=== PATIENT | female | born 1945 | race Caucasian/White ===

== ENCOUNTER 2018-07-05 13:23 | Observation (INO) | payer OTHER ==
--- NOTE | 2018-07-05 13:56 | PDOC ---
Attending Attestation - HPI HPI: 07/05/18 14:41 CC: AMS HPI: The patient is a 72 year old female, with a significant past medical history of schizophrenia, mood disorder, osteoporosis, hypothyroidism, CHF, h/o DVT, who presents to the emergency department with, altered mental status. As per alf, she has been altered, they attempted to begin a work-up on her but , were unsuccessful. History is limited due to patients clinical condition. Primary Care Physician: Dr. Srivastava <Kal Little - Last Filed: 07/05/18 14:41> - Resident Resident Name: Leona Daniels - ED Attending Attestation I have performed the following: I have examined & evaluated the patient, The case was reviewed & discussed with the resident, I agree w/resident's findings & plan, Exceptions are as noted - Physicial Exam PE: 07/05/18 18:07 reviewed residents PE - Medical Decision Making 07/05/18 18:08 72 years old history schizophrenia on Risperdal and Depakote presents to the ED with altered mental status per facility Patient given Haldol upon arrival for anxiolysis CT within normal limits laboratory analysis notable for possible UTI and slight Depakote toxicity We'll treat with IV fluids ceftriaxone hold Depakote and observe patient overnight. [facility] aware of findings. <Jin Simmons - Last Filed: 07/05/18 18:09> Heart Score/ECG Review - ECG Impressions Comment:: 07/05/18 18:09 EKG performed at 1350. Demonstrates normal sinus rhythm. T-wave inversions septally No ST elevations. Interpreted by me. <Jin Simmons - Last Filed: 07/05/18 18:09> Attestations - Attestations 07/05/18 14:41 Documentation prepared by Kal Little, acting as medical physicist for Jin Simmons MD. <Kal Little - Last Filed: 07/05/18 14:41>
--- NOTE | 2018-07-05 14:10 | PDOC ---
History of Present Illness - General Stated Complaint: SEPSIS Time Seen by Provider: 07/05/18 13:34 - History of Present Illness Initial Comments: Yelena Bobo is a 72yo woman with schizophrenia, mood disorder, osteoporosis , hypothyroidism, CHF, h/o DVT who presents from [facility] with altered mental status. Ms Bobo is unable to provide any additional information as she does not answer questions. Past History - Past Medical History Allergies/Adverse Reactions: Allergies Allergy/AdvReac Type Severity Reaction Status Date / Time No Known Allergies Allergy Verified 07/05/18 16:17 Home Medications: Ambulatory Orders Alendronate Sodium [Binosto] 70 mg PO WEEKLY 07/05/18 Divalproex Sprinkle [Depakote Sprinkle -] 1,250 mg PO DAILY 07/05/18 Risperidone 0.5 mg PO BID 07/05/18 Review of Systems - Review of Systems Comments:: Could not obtain. AMS, does not answer questions. *Physical Exam - Physical Exam Comments: General: No acute distress HEENT: PERRL, EOMI, MMM, normal neck ROM, no obvious injury Cards: RRR Pulm: Comfortable on room air, no wheezing or crackles appreciated Abd: Soft, nontender, nondistended Ext: Atraumatic. No LE edema. ROM intact. Moves all extremities Vasc: Extremities WWP. Skin: Normal color, no rashes or lesions Neuro: A&Ox3, CN grossly intact, motor/sensory grossly intact and symmetric Psych: Agitated ED Treatment Course - LABORATORY CBC & Chemistry Diagram: 07/05/18 14:20 07/05/18 14:20 Medical Decision Making - Medical Decision Making 07/05/18 14:26 Yelena Bobo is a 72yo woman with a significant psychiatric history, prior DVT, CHF who presents from [facility] with AMS. - Normal HR, RR, temp - does not meet sepsis criteria - Urine malodorous. UA, UCx sent - CXR, EKG to r/o acute abnormalities - No obvious head trauma, but unknown whether Ms Bobo had a fall. CT head to r/o bleed or abnormalities - On depakote; will check level - CBC, CMP, mag, phos for abnormalities that could be causing AMS - Blood cultures to r/o bacteremia 07/05/18 16:15 - Labs reviewed. No concerning abnormalities on CBC or CMP. - UA with +leuk esterase, +nitrites, 8WBC, rare bacteria. Likely UTI, may be the cause of AMS. Giving 1g ceftriaxone - Depakote level supratherapeutic at 182. - Blood and urine cultures pending - CXR and EKG w/o concerning abnormalities - CT head to be completed - Informed Myra Correa at [facility] (medical staff). She reports most recent level was obtained in January; unknown how long the level was high. - Spoke to Dr Izaguirre regarding admission. Will accept to obs. Seen and discussed with Dr Simmons. Amanda Engel PGY1 *DC/Admit/Observation/Transfer Diagnosis at time of Disposition: Altered mental status Qualifiers: Altered mental status type: unspecified Qualified Code(s): R41.82 - Altered mental status, unspecified UTI (urinary tract infection) Qualifiers: Urinary tract infection type: site unspecified Hematuria presence: without hematuria Qualified Code(s): N39.0 - Urinary tract infection, site not specified - Discharge Dispostion Condition at time of disposition: Stable Decision to Admit order: Yes - Referrals Referrals: Jamari Srivastava [Primary Care Provider] - - Patient Instructions - Post Discharge Activity
[2018-07-05] MEDS ORDERED: HALOPERIDOL LACTATE 5 MG/ML IM ONE (14:17)
[2018-07-05 14:31] LABS: BASO % 0.6 % (0-2.0); EOS % 1.5 % (0-4.5); HEMATOCRIT 33.8 % (32.4-45.2); HEMOGLOBIN 11.7 GM/dL (10.7-15.3); LYMPH % 36.9 % (8-40); MCH 29.5 pg (25.7-33.7); MCHC 34.7 g/dl (32.0-36.0); MEAN CELL VOLUME 84.9 fl (80-96); MEAN PLT VOLUME 8.3 fl (7.5-11.1); MONO % 6.3 % (3.8-10.2); NEUT % 54.7 % (42.8-82.8); PLATELET COUNT 242 K/MM3 (134-434); RBC 3.98 M/mm3 (3.60-5.2); RDW 15.4 % (11.6-15.6); WHITE BLOOD COUNT 5.9 K/mm3 (4.0-10.0)
[2018-07-05 14:42] LABS: URINE APPEARANCE CLEAR; URINE BILIRUBIN NEGATIVE (<2.0 mg/dL); URINE COLOR LTYELLOW; URINE GLUCOSE (UA) NEGATIVE (NEGATIVE); URINE KETONE NEGATIVE (NEGATIVE); URINE LEUK ESTERASE 1+ (NEGATIVE); URINE NITRITE POSITIVE (NEGATIVE); URINE PROTEIN NEGATIVE (NEGATIVE); URINE UROBILINOGEN NEGATIVE mg/dL (0.2-1.0)
[2018-07-05 14:51] LABS: EPI CELLS RARE /HPF (FEW); URINE BACTERIA RARE /hpf (NONE SEEN)
[2018-07-05 15:55] LABS: ALBUMIN 3.4 g/dl (3.4-5.0); ALK PHOS 70 U/L (45-117); ANION GAP 8 MMOL/L (8-16); BILIRUBIN,TOTAL 0.3 mg/dL (0.2-1); BLOOD UREA NITROGEN 12 mg/dL (7-18); CALCIUM 9.3 mg/dL (8.5-10.1); CHLORIDE 104 mmol/L (98-107); CO2 28 mmol/L (21-32); CREATININE 0.7 mg/dL (0.55-1.3); GLUCOSE,RANDOM 83 mg/dL (74-106); MAGNESIUM 2.2 mg/dL (1.8-2.4); PHOSPHOROUS 3.4 mg/dL (2.5-4.9); POTASSIUM 4.7 mmol/L (3.5-5.1); SGOT/AST 17 U/L (15-37); SGPT/ALT 12 U/L (13-61); SODIUM 140 mmol/L (136-145); TOT PROT 6.9 g/dl (6.4-8.2)
[2018-07-05] MEDS ORDERED: CEFTRIAXONE 1 GM in DEXTROSE 5%-WATER - 50 ML IVPB ONE (16:14)
[2018-07-05] MEDS ORDERED: CEFTRIAXONE 1 GM/50 ML BAG ONE (18:16)
[2018-07-05] MEDS ORDERED: ACETAMINOPHEN 500 MG TABLET (FP) PO PRN (21:43)
[2018-07-06 01:52] VITALS: BMI 32.8
[2018-07-06] MEDS ORDERED: DEXTROSE 5%-WATER - 50 ML IVPB ONE (06:24)
[2018-07-06] MEDS ORDERED: cefTRIAXone SODIUM 1 GM VIAL ONE (06:24)
[2018-07-06] MEDS: LEVOTHYROXINE NA 88 MCG TABLET (FP) PO SCH ×3 (06:40→07:49)
[2018-07-06] MEDS: CEFTRIAXONE 1 GM in DEXTROSE 5%-WATER - 50 ML IVPB SCH ×3 (06:40→07:49)
--- NOTE | 2018-07-06 10:43 | HP ---
Admitting History and Physical - Primary Care Physician PCP: Zion Srivastava - Admission Chief Complaint: AMS History of Present Illness: ER History -- The patient is a 72 year old female, with a significant past medical history of schizophrenia, mood disorder, osteoporosis, hypothyroidism, CHF, h/o DVT, who presents to the emergency department with, altered mental status. As per retirement, she has been altered, they attempted to begin a work-up on her but , were unsuccessful. History is limited due to patients clinical condition. Pt seen by me in the floors Sleepy but arousable As per RN- last night she was very agitated Baseline- confused, agitated at times. No distress ate her breakfast this AM History Source: Patient, Transfer Record Limitations to Obtaining History: Poor Historian - Past Medical History ...: No Psych: Yes: Bipolar, Depression, Schizophrenia Endocrine: Yes: Hypothyroidism - Smoking History Smoking history: Unknown if ever smoked Home Medications - Allergies Allergies/Adverse Reactions: Allergies Allergy/AdvReac Type Severity Reaction Status Date / Time No Known Allergies Allergy Verified 07/05/18 16:17 - Home Medications Home Medications: Ambulatory Orders Acetaminophen [Tylenol -] 500 mg PO Q6H 07/05/18 Alendronate Sodium [Binosto] 70 mg PO WEEKLY 07/05/18 Divalproex Sprinkle [Depakote Sprinkle -] 1,000 mg PO HS 07/05/18 Divalproex Sprinkle [Depakote Sprinkle -] 1,250 mg PO DAILY 07/05/18 Ergocalciferol (Vitamin D2) [Drisdol] 50,000 unit PO WEEKLY 07/05/18 Folic Acid - 1 mg PO DAILY 07/05/18 Ketoconazole 2% Cream [Nizoral 2% Cream -] 1 applic TP DAILY 07/05/18 Levothyroxine Sodium [Synthroid] 88 mcg PO AM 07/05/18 Olanzapine Zydis [Zyprexa Zydis -] 20 mg PO HS 07/05/18 Risperidone 0.5 mg PO BID 07/05/18 Review of Systems - Review of Systems Constitutional: denies: Chills, Fever Physical Examination Vital Signs: Vital Signs Temperature 98.2 F 07/06/18 07:05 Pulse Rate 88 07/06/18 07:05 Respiratory Rate 18 12/05/18 07:05 Blood Pressure 132/76 12/05/18 07:05 O2 Sat by Pulse Oximetry (%) 98 07/05/18 21:00 Constitutional: Yes: No Distress, Calm Cardiovascular: Yes: Regular Rate and Rhythm Respiratory: Yes: Diminished Gastrointestinal: Yes: Normal Bowel Sounds, Soft. No: Tenderness Edema: No Labs: CBC, BMP 07/05/18 14:20 07/05/18 14:20 Imaging - Results Chest X-ray: Image Reviewed (no infiltrate) Cat Scan: Report Reviewed EKG: Image Reviewed (NSR) Problem List - Problems (1) Schizophrenia Code(s): F20.9 - SCHIZOPHRENIA, UNSPECIFIED (2) Bipolar 1 disorder Code(s): F31.9 - BIPOLAR DISORDER, UNSPECIFIED (3) Altered mental status Code(s): R41.82 - ALTERED MENTAL STATUS, UNSPECIFIED Qualifiers: Altered mental status type: unspecified Qualified Code(s): R41.82 - Altered mental status, unspecified (4) UTI (urinary tract infection) Code(s): N39.0 - URINARY TRACT INFECTION, SITE NOT SPECIFIED Qualifiers: Urinary tract infection type: site unspecified Hematuria presence: without hematuria Qualified Code(s): N39.0 - Urinary tract infection, site not specified Assessment/Plan PLAN IV antibiotics hold Valproate - repeat levels check urine cultures and blood cultures DVT prophylaxis-- heparin sc
--- NOTE | 2018-07-06 13:03 | EKG ---
Test Reason : Blood Pressure : / mmHG Vent. Rate : 068 BPM Atrial Rate : 068 BPM P-R Int : 160 ms QRS Dur : 088 ms QT Int : 384 ms P-R-T Axes : 051 027 005 degrees QTc Int : 408 ms NORMAL SINUS RHYTHM POSSIBLE LEFT ATRIAL ENLARGEMENT SEPTAL INFARCT , AGE UNDETERMINED T WAVE ABNORMALITY, CONSIDER ANTERIOR ISCHEMIA ABNORMAL ECG NO PREVIOUS ECGS AVAILABLE Confirmed by MARIANO EDGAR MD ([id number]) on 07/06/2018 1:03:24 PM Referred By: Confirmed By:MARIANO EDGAR MD
[2018-07-06] MEDS ORDERED: PT OWN MED DRAWER 7, Y5N ONE (21:58)
[2018-07-06] MEDS: HEPARIN NA (PORCINE) 5,000 UNITS/ML 1ML VIAL SQ SCH ×2 (22:00→22:04)
[2018-07-06] MEDS: risperiDONE 0.5 MG TABLET (FP) PO SCH (22:00)
[2018-07-07] MEDS ORDERED: DEXTROSE 5%-WATER - 50 ML IVPB ONE (06:41)
[2018-07-07] MEDS ORDERED: cefTRIAXone SODIUM 1 GM VIAL ONE (06:41)
[2018-07-07] MEDS: CEFTRIAXONE 1 GM in DEXTROSE 5%-WATER - 50 ML IVPB SCH (06:47)
[2018-07-07] MEDS: LEVOTHYROXINE NA 88 MCG TABLET (FP) PO SCH ×2 (06:48→10:38)
[2018-07-07] MEDS: HEPARIN NA (PORCINE) 5,000 UNITS/ML 1ML VIAL SQ SCH (10:38)
[2018-07-07] MEDS: risperiDONE 0.5 MG TABLET (FP) PO SCH (10:38)
--- NOTE | 2018-07-07 13:16 | DS ---
Physical Examination Vital Signs: Vital Signs Temperature 98.6 F 07/07/18 09:00 Pulse Rate 66 07/07/18 09:00 Respiratory Rate 20 07/07/18 09:00 Blood Pressure 113/61 07/07/18 09:00 O2 Sat by Pulse Oximetry (%) 98 07/07/18 09:00 Constitutional: Yes: No Distress, Calm Cardiovascular: Yes: Regular Rate and Rhythm Respiratory: Yes: CTA Bilaterally Gastrointestinal: Yes: Normal Bowel Sounds, Soft. No: Tenderness Edema: No Labs: CBC, BMP 07/05/18 14:20 07/05/18 14:20 Discharge Summary Reason For Visit: URINARY TRACT INFECTION; ALTERED MENTAL STATUS Current Active Problems Altered mental status (Acute) Bipolar 1 disorder (Acute) Schizophrenia (Acute) UTI (urinary tract infection) (Acute) Hospital Course: Pt admitted for AMS- found to have UTI and elevated valproate levels Valproic acid dose decreased Pt was started on iv antibiotics clinically better and at baseline mentation CT head negative Stable for dc to [facility] Condition: Stable - Instructions Referrals: Jamari Srivastava [Primary Care Provider] - [facility] - Home Medications Comprehensive Discharge Medication List: Ambulatory Orders Acetaminophen [Tylenol -] 500 mg PO Q6H 07/05/18 Alendronate Sodium [Binosto] 70 mg PO WEEKLY 07/05/18 Divalproex Sprinkle [Depakote Sprinkle -] 1,000 mg PO HS 07/05/18 Divalproex Sprinkle [Depakote Sprinkle -] 1,250 mg PO DAILY 07/05/18 Ergocalciferol (Vitamin D2) [Drisdol] 50,000 unit PO WEEKLY 07/05/18 Folic Acid - 1 mg PO DAILY 07/05/18 Ketoconazole 2% Cream [Nizoral 2% Cream -] 1 applic TP DAILY 07/05/18 Levothyroxine Sodium [Synthroid] 88 mcg PO AM 07/05/18 Olanzapine Zydis [Zyprexa Zydis -] 20 mg PO HS 07/05/18 Risperidone 0.5 mg PO BID 07/05/18
[2018-07-07] MEDS ORDERED: DIVALPROEX SODIUM 500 MG TABLET E.C. PO ONE (13:17)
[2018-07-07 17:00] VITALS: BP 163/61; PULSE 91; TEMP 99.5
[2018-07-07] MEDS ORDERED: DIVALPROEX SODIUM 500 MG TABLET E.C. PO SCH (22:00)
== END 2018-07-07 18:45 ==
LOC: JER 13:23 → JERBED 16:22 → J8W 20:18
PROVIDERS: ADMIT Internal Medicine; ATTEND Internal Medicine
PROC: 3E03329 Introduction of Other Anti-infective into Peripheral Vein, Percutaneous Approach (ICD-10-PCS; principal; 2018-07-05)
PROC: 3E013GC Introduction of Other Therapeutic Substance into Subcutaneous Tissue, Percutaneous Approach (ICD-10-PCS; 2018-07-05)
DX: N39.0 Urinary tract infection, site not specified (principal); B96.89 Other specified bacterial agents as the cause of diseases classified elsewhere; I50.9 Heart failure, unspecified; F20.9 Schizophrenia, unspecified; F31.9 Bipolar disorder, unspecified; F39 Unspecified mood [affective] disorder; E03.9 Hypothyroidism, unspecified; M81.0 Age-related osteoporosis without current pathological fracture; Z86.718 Personal history of other venous thrombosis and embolism
CPT/HCPCS: 36415; 70450-TC; 71045-TC-FY; 80053; 80164; 81003; 81015; 83605; 83735; 84100; 85025; 87040; 87086; 87186; 93005; 93010; 96365; 96372; 99283-25; G0378; J1644